=== PATIENT | female | born 1990 | race Caucasian/White ===

== ENCOUNTER 2019-05-07 17:58 | Emergency (ER) | payer OTHER, MEDICAID ==
[2019-05-07 18:53] LABS: URINE PH (Dip) POC 5.5 (5.0-8.5)
[2019-05-07 18:53] LABS: URINE BLOOD (Dip) POC Negative (NEGATIVE); URINE GLUCOSE (Dip) POC Negative (NEGATIVE); URINE KETONES (Dip) POC Negative (NEGATIVE); URINE LEUKOCYTE EST (Dip) POC Trace (NEGATIVE); URINE NITRITE (Dip) POC Negative (NEGATIVE); URINE TOTAL PROTEIN POC Trace (NEGATIVE)
[2019-05-07] MEDS: HYDROCODONE/APAP (5/325) TAB PO (18:54)
[2019-05-07] MEDS: LIDOCAINE/MYLANTA 40 ML BTL PO (18:54)
== END 2019-05-07 19:50 | disposition home or self-care (01) ==
LOC: FTE 17:58
DX: N39.0 Urinary tract infection, site not specified (principal)
CPT/HCPCS: 81003; 81025; 99283